=== PATIENT | male | born 1985 | race Caucasian/White ===

== ENCOUNTER 2023-03-29 13:25 | Emergency (ER) | payer SELFPAY ==
[~2023-03-29] VITALS: Ht 170.2 cm; Wt 118.0 kg
[2023-03-29 13:50] VITALS: BP 152/85; O2SAT 97
[2023-03-29 16:21] LABS: BASOPHILS % 0.9 % (0.0-2.0); EOSINOPHILS % 1.6 % (0.0-5.0); HEMATOCRIT. 45.8 % (42.0-52.0); LYMPHOCYTES % 22.5 % (20.0-50.0); MEAN CORPUSCULAR HEMOGLOBIN 27.9 pg (28.0-32.0); MEAN CORPUSCULAR HGB CONC 32.7 g/dL (31.0-37.0); MEAN CORPUSCULAR VOLUME 85.5 fL (80.0-94.0); MEAN PLATELET VOLUME 7.9 fl (7.4-10.4); MONOCYTES % 9.3 % (2.0-8.0); NEUTROPHILS % 65.7 % (40.0-76.0); PLATELET 361 x1000/uL (130-400); RED BLOOD CELL COUNT 5.35 mill/uL (4.7-6.1); RED CELL DISTRIBUTION WIDTH 15.9 % (11.6-14.6); WHITE BLOOD COUNT 10.5 x1000/uL (4.5-11.0)
[2023-03-29 16:39] LABS: ALANINE AMINOTRANSFERASE 104 IU/L (10-49); ALBUMIN 4.2 g/dL (3.2-4.8); ASPARTATE AMINOTRANSFERASE 66 IU/L (<34); BILIRUBIN TOTAL 0.4 mg/dL (0.1-1.0); CALCIUM 8.7 mg/dL (8.7-10.4); CARBON DIOXIDE 28 mEq/L (21-32); CHLORIDE 105 mEq/L (98-107); CREATININE 0.7 mg/dL (0.6-1.3); GLUCOSE 94 mg/dL (70-105); PROTEIN TOTAL 8.3 g/dL (6.0-8.3); SODIUM 140 mEq/L (136-145); UREA NITROGEN BLOOD 11 mg/dL (9-23)
[2023-03-29 16:44] LABS: TROPONIN I HIGH SENSITIVITY < 4 ng/L (3.0-53)
[2023-03-29] MEDS ORDERED: DEXT15DR5 EACHEYE (18:36)
[2023-03-29] MEDS ORDERED: ACYC200C31 MT (18:36)
[2023-03-29] MEDS ORDERED: P50 MT (18:36)
[2023-03-29 18:55] VITALS: PULSE 80; RESP 16; TEMP 98.7
== END 2023-03-29 18:57 | disposition home or self-care (01) ==
LOC: ER 13:34 → EDBD 13:34 → ER 18:57
DX: G51.0 Bell's palsy (principal)
CPT/HCPCS: 36415; 80053; 84484; 85025; 99283